=== PATIENT | male | born 1995 | race Caucasian/White ===

== ENCOUNTER 2019-09-14 09:34 | Outpatient (CLI) | payer BC, SELFPAY ==
[2019-09-14 09:59] LABS: Basophils Absolute Auto 0.05 K/mm3 (0.00-0.10); Basophils Percent Auto 0.9 % (0.0-1.0); Eosinophils Absolute Auto 0.09 K/mm3 (0.02-0.50); Eosinophils Percent Auto 1.5 % (1.0-6.0); Hematocrit 51.3 % (40.0-54.0); Hemoglobin 16.5 g/dL (14.0-18.0); Immature Granulocyte Absolute 0.01 K/mm3 (0.00-0.00); Immature Granulocyte Percent A 0.2 % (0.0-0.0); Lymphocytes Absolute Auto 1.62 K/mm3 (1.10-4.50); Lymphocytes Percent Auto 27.9 % (18.0-42.0); Mean Corpuscular HGB Conc 32.2 g/dL (32.0-36.0); Mean Corpuscular Hemoglobin 30.9 pg (27.0-31.0); Mean Corpuscular Volume 96.1 fL (78.0-102.0); Mean Platelet Volume 9.8 fl (8.7-11.0); Monocytes Percent Auto 6.9 % (2.0-11.0); Neutrophils Absolute Auto 3.6 K/mm3 (1.7-7.2); Neutrophils Percent Auto 62.6 % (50.0-70.0); Platelet Count Result 312 K/mm3 (150-420); Red Blood Count 5.34 M/mm3 (4.70-6.10); Red Cell Distribution Width 12.5 % (11.6-14.4); White Blood Count 5.8 K/mm3 (4.8-10.8)
[2019-09-14 11:07] LABS: Alanine Aminotransferase 38 U/L (16-63); Albumin Level 4.4 g/dL (3.4-5.0); Alkaline Phosphatase 90 U/L (46-116); Anion Gap 15.9 mmol/L (7-16); Aspartate Amino Transferase 22 U/L (15-37); Bilirubin,Total 0.6 mg/dL (0.00-1.00); Blood Urea Nitrogen 13 mg/dL (7-18); Calcium 9.2 mg/dL (8.5-10.1); Carbon Dioxide 24 mmol/L (21-32); Chloride 101 mmol/L (98-108); Cholesterol 209 mg/dL (0-200); Estimated Glomerular Filt Rate > 60; Glucose 106 mg/dL (70-99); HDL Direct 32 mg/dL (40-60); LDL Cholesterol Calculated 159 mg/dL (<130); Osmolality Calculated 284 mOsm/kg (285-295); Potassium 3.9 mmol/L (3.5-5.1); Sodium 137 mmol/L (136-145); Triglycerides 92 mg/dL (0-150)
[2019-09-14 11:10] LABS: Thyroid Stimulating Hormone Reflex 1.19 u/IU/mL (0.36-3.74)
== END 2019-09-14 09:35 | disposition home or self-care (01) ==
PROVIDERS: PCP Family Medicine; Visit Provider Family Medicine
DX: R03.0 Elevated blood-pressure reading, without diagnosis of hypertension (principal); E66.9 Obesity, unspecified; R00.0 Tachycardia, unspecified
CPT/HCPCS: 36415; 80053; 80061; 84443; 85025

== ENCOUNTER 2020-02-20 00:55 | Emergency (ER) | payer BC, SELFPAY ==
[2020-02-20] VITALS (11 sets, daily range): BP systolic 131–182; BP diastolic 80–93; PULSE 88–125; RESP 14–21; TEMP 37.3; O2SAT 97–100
--- NOTE | ~2020-02-20 | XR_ITS ---
EXAMINATION: XR chest 2V DATE: 02/20/2020 02:09 INDICATION: Tachycardia TECHNIQUE: PA and lateral views of the chest are obtained. COMPARISON: None available FINDINGS: The lungs are free of acute opacities. There is no pleural effusion or pneumothorax. The ca rdiomediastinal silhouette is normal. The visualized bones and soft tissues are unremarkable. IMPRESSION: 1. No acute cardiopulmonary abnormality. Reviewed, dictated and finalized at location A. AW OPERATOR
--- NOTE | 2020-02-20 01:12 | ECG_ITS ---
Measurements Intervals [place] Rate: 111 P: 66 MS: 150 QRS: 47 QRSD: 84 T: -2 QT: 302 QTc: 412 Interpretive Statements SINUS TACHYCARDIA CANNOT RULE OUT SEPTAL INFARCT, AGE INDETERMINATE BORDERLINE ST-T WAVE ABNORMALITY- INF/LAT LEADS ABNORMAL ECG Electronically Signed On 02-20-2020 8:11:32 MANAGER [employer] by Emerson Alvarez D.O.
[2020-02-20] MEDS: METOPROLOL TARTRATE 50 MG TAB 25 MG PO (01:30)
[2020-02-20 01:43] LABS: Basophils Absolute Auto 0.08 K/mm3 (0.00-0.10); Basophils Percent Auto 0.9 % (0.0-1.0); Eosinophils Percent Auto 2.3 % (1.0-6.0); Hematocrit 44.7 % (40.0-54.0); Hemoglobin 14.9 g/dL (14.0-18.0); Immature Granulocyte Absolute 0.02 K/mm3 (0.00-0.00); Immature Granulocyte Percent A 0.2 % (0.0-0.0); Lymphocytes Percent Auto 32.5 % (18.0-42.0); Mean Corpuscular HGB Conc 33.3 g/dL (32.0-36.0); Mean Corpuscular Hemoglobin 30.2 pg (27.0-31.0); Mean Corpuscular Volume 90.7 fL (78.0-102.0); Mean Platelet Volume 9.5 fl (8.7-11.0); Monocytes Absolute Auto 1.03 K/mm3 (0.10-0.90); Monocytes Percent Auto 11.9 % (2.0-11.0); Neutrophils Absolute Auto 4.5 K/mm3 (1.7-7.2); Neutrophils Percent Auto 52.2 % (50.0-70.0); Platelet Count Result 318 K/mm3 (150-420); Red Blood Count 4.93 M/mm3 (4.70-6.10); Red Cell Distribution Width 12.8 % (11.6-14.4); White Blood Count 8.6 K/mm3 (4.8-10.8)
[2020-02-20] MEDS: LORazepam (*CRX) 1 MG TABLET PO (01:45)
[2020-02-20 01:47] LABS: Add Urine Microscopic? NO; Appearance Urine Clear (Clear); Bilirubin Urine Negative (Negative); Blood Urine Negative (Negative); Color Urine Yellow (Yellow); Glucose Urine UA Negative (Negative); Ketones Urine Negative (Negative); Leukocyte Esterase Ur Negative LEU/UL (Negative); Nitrate Urine Negative (Negative); Protein Urine Negative (Negative); Specific Grav Ur 1.025 (1.010-1.020); Urobilinogen Urine 0.2 mg/dL (0.2-1.0)
--- NOTE | 2020-02-20 01:53 | ED.ARRPALP ---
HPI - Arrhythmia/Palpitations General Chief Complaint: Arrhythmia/Palpitations Stated Complaint: 24YO male w/ known h.o Heart Palpitations that started in november of 2019 here c/o recurrent palpitations while he was at home watching TV. Patient had f/u w/ PCP with Normal rate and was asked to f/u. 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 Exam Const: General: no acute distress and alert Orientation/consciousness: patient oriented x3 HENMT: Head: normal to inspection Eyes: Conjunctivae: conjunctivae normal Pupils: Equal, round and reactive pupils present Neck: Neck: normal visual inspection and no lymphadenopathy Chest: Chest palpation & inspection: normal inspection of the chest Resp: Effort & Inspection: normal respiratory effort Auscultation: clear to auscultation bilaterally Cardio: Rate: regular rate Rhythm: regular rhythm GI: Inspection: non-distended Auscultation: normal bowel sounds Skin: General skin exam: normal color Rashes: no rashes Neuro: General: patient oriented x3, moves all extremities, no meningeal signs, no focal motor deficits and CN's II-XI intact bilaterally Cranial nerves: Yes Nystagmus not present Speech: normal speech Gait exam (Neuro): Normal gait present Extrem: General: normal to inspection Psych: Appearance: grossly normal Mental Status: mental status grossly normal Affect: normal affect Attitude: cooperative Thought content: Yes Normal thought content present Course Course Emergency Course: Palpitations sec to sinus tachycardia improved w/ metoprolol and ativan. W/U Normal Vital Signs Vital signs: Vital Signs Temperature 99.1 F 02/20/20 01:00 Pulse Rate 125 H 02/20/20 01:00 Respiratory Rate 20 02/20/20 01:00 Blood Pressure 182/80 H 02/20/20 01:00 Pulse Oximetry 100 02/20/20 01:00 Temperature 99.1 F 02/20/20 01:00 Pulse Rate 111 H 02/20/20 01:30 Respiratory Rate 20 02/20/20 01:00 Blood Pressure 182/80 H 02/20/20 01:00 Pulse Oximetry 100 02/20/20 01:00 MDM - Arrhythmia/Palpitations Differential Diagnosis Differential diagnosis: Likely palpitations, anxiety and sinus tachycardia; Unlikely artial fibrillation, artial flutter, ventricular premature beats, supraventricular tachycardia, ventricular tachycardia and WPW Medical Records Attestation: I reviewed the patient's medical records. Lab Data Attestation: I reviewed the patient's lab results. Result diagrams: 02/20/20 01:34 02/20/20 01:34 Labs: Lab Results 02/20/20 02/20/20 02/20/20 Range/Units 01:34 01:34 01:34 WBC 8.6 (4.8-10.8) K/mm3 RBC 4.93 (4.70-6.10) M/mm3 Hgb 14.9 (14.0-18.0) g/dL Hct 44.7 (40.0-54.0) % MCV 90.7 (78.0-102.0) fL MCH 30.2 (27.0-31.0) pg MCHC 33.3 (32.0-36.0) g/dL RDW 12.8 (11.6-14.4) % Plt Count 318 (150-420) K/mm3 MPV 9.5 (8.7-11.0) fl Immature Gran % (Auto) 0.2 H (0.0-0.0) % Neut % (Auto) 52.2 (50.0-70.0) % Lymph % (Auto) 32.5 (18.0-42.0) % [place] % (Auto) 11.9 H (2.0-11.0) % Eos % (Auto) 2.3 (1.0-6.0) % Baso % (Auto) 0.9 (0.0-1.0) % Lymph
[2020-02-20 01:55] LABS: Partial Thromboplastin Time 26.9 SEC (23.90-30.70); Prothrombin Time 11.1 Seconds (9.50-12.10)
[2020-02-20 01:57] LABS: Amphetamine Screen Urine Negative (Negative); Barbiturate Screen Urine Negative (Negative); Benzodiazepines Screen Urine Negative (Negative); Cannabinoid Screen Urine Negative (Negative); Cocaine Screen Urine Negative (Negative); Methadone Screen Urine Negative (Negative); Opiate Screen Urine Negative (Negative); Phencyclidine Screen Urine Negative (Negative)
[2020-02-20 02:02] LABS: Alanine Aminotransferase 57 U/L (16-63); Alkaline Phosphatase 100 U/L (46-116); Anion Gap 8 mmol/L (8-16); Aspartate Amino Transferase 24 U/L (15-37); Bilirubin,Total 0.2 mg/dL (0.00-1.00); Blood Urea Nitrogen 16 mg/dL (7-18); Carbon Dioxide 30 mmol/L (21-32); Chloride 104 mmol/L (98-108); Estimated CRCL calculation 106 ml/min; Estimated Glomerular Filt Rate > 60; Glucose 105 mg/dL (70-99); Osmolality Calculated 295 mOsm/kg (285-295); Potassium 3.8 mmol/L (3.5-5.1); Sodium 142 mmol/L (136-145); Total Protein 7.8 g/dL (6.4-8.2)
[2020-02-20 02:02] LABS: Troponin I 5.1 ng/L (0.00-60.4)
== END 2020-02-20 02:56 | disposition home or self-care (01) ==
PROVIDERS: Emergency Provider Family Medicine; PCP Family Medicine
DX: R00.2 Palpitations (principal); R00.0 Tachycardia, unspecified
CPT/HCPCS: 36415; 71046; 80053; 80307; 81003; 84484; 85025; 85610; 85730; 93005; 99283; 99284; A9270

== ENCOUNTER 2022-02-18 07:53 | Outpatient (CLI) | payer OTHER, SELFPAY ==
--- NOTE | 2022-02-21 11:51 | WPDHOLTEREM ---
Holter/Event Monitor Holter/Event Monitor Date of procedure: 02/18/22 Holter/Event Procedure: 48 Hr Holter Monitor Indications: Palpitations Conclusion: 1. 48 hour holter monitor on 02/18/22. 2. Underlying rhythm is sinus rhythm with sinus arrhythmia. HR range 46-158 bpm; average HR 76 bpm. HR at 158 bpm was at 20:45. 3. There are 27 premature supraventricular complexes and 1 supraventricular couplet. No supraventricular tachycardia. 4. There are 77 premature ventricular complexes and 1 ventricular couplet. No ventricular tachycardia. 5. No sinoatrial or atrioventricular blocks. No significant pauses greater than 2 seconds. 6. Patient reports 1 episode of symptom of noticeable heart beat which demonstrate sinus tachycardia at 120 bpm.
== END 2022-02-18 07:54 | disposition home or self-care (01) ==
LOC: CHSCARD 07:54
PROVIDERS: PCP Family Medicine; Visit Provider Family Medicine
DX: R00.2 Palpitations (principal); R94.31 Abnormal electrocardiogram [ECG] [EKG]
CPT/HCPCS: 93225; 93226

== ENCOUNTER 2022-10-15 12:30 | Outpatient (CLI) | payer OTHER, SELFPAY ==
[2022-10-15 13:14] LABS: Cholesterol 199 mg/dL (0-200); HDL Direct 34 mg/dL (40-60); LDL Cholesterol Calculated 149 mg/dL (<130); Triglycerides 78 mg/dL (0-150)
== END 2022-10-15 12:31 | disposition home or self-care (01) ==
PROVIDERS: PCP Family Medicine; Visit Provider Family Medicine
DX: Z00.00 Encounter for general adult medical examination without abnormal findings (principal)
CPT/HCPCS: 36415; 80061

== ENCOUNTER 2023-10-13 09:49 | Outpatient (CLI) | payer OTHER, SELFPAY ==
[2023-10-13 11:14] LABS: Alanine Aminotransferase 30 U/L (16-63); Albumin Level 4.2 g/dL (3.4-5.0); Alkaline Phosphatase 97 U/L (46-116); Anion Gap 7 mmol/L (4-12); Aspartate Amino Transferase 18 U/L (15-37); Bilirubin,Total 0.5 mg/dL (0.00-1.00); Blood Urea Nitrogen 14 mg/dL (7-18); Calcium 9.1 mg/dL (8.5-10.1); Carbon Dioxide 29 mmol/L (21-32); Chloride 103 mmol/L (98-108); Cholesterol 209 mg/dL (0-200); Estimated Glomerular Filt Rate > 60; Glucose 95 mg/dL (70-99); HDL Direct 34 mg/dL (40-60); LDL Cholesterol Calculated 152 mg/dL (<130); Osmolality Calculated 288 mOsm/kg (285-295); Potassium 3.8 mmol/L (3.5-5.1); Sodium 139 mmol/L (136-145); Total Protein 7.5 g/dL (6.4-8.2); Triglycerides 114 mg/dL (0-150)
== END 2023-10-13 09:50 | disposition home or self-care (01) ==
LOC: CHSLAB 09:51
PROVIDERS: PCP Family Medicine; Visit Provider Family Medicine
DX: Z00.00 Encounter for general adult medical examination without abnormal findings (principal); R03.0 Elevated blood-pressure reading, without diagnosis of hypertension
CPT/HCPCS: 36415; 80053; 80061